=== PATIENT | female | born 1940 | race Caucasian/White ===

== ENCOUNTER 2024-05-12 07:27 | Inpatient (IN) | payer BC, OTHER ==
[2024-05-12 08:15] VITALS: BMI 21.2
[2024-05-12] MEDS ORDERED: ACETAMINOPHEN 325 MG TABLET (FP) ONE (10:30)
[2024-05-12] MEDS: ACETAMINOPHEN 500 MG TABLET (FP) PO ONE (10:39)
[2024-05-12 11:40] LABS: BASO % 0.4 % (0-2.0); HEMATOCRIT 36.9 % (32.4-45.2); HEMOGLOBIN 12.1 GM/dL (10.7-15.3); LYMPH % 7.4 % (8-40); MCH 31.4 pg (25.7-33.7); MCHC 32.7 g/dl (32.0-36.0); MONO % 6.5 % (3.8-10.2); NEUT % 85.7 % (42.8-82.8); PLATELET COUNT 234 10^3/uL (134-434); RBC 3.85 M/mm3 (3.60-5.2); RDW 13.9 % (11.6-15.6); WHITE BLOOD COUNT 13.1 K/mm3 (4.0-10.0)
[2024-05-12 11:55] LABS: POTASSIUM 4.2 mmol/L (3.5-5.1)
[2024-05-12 11:57] LABS: ALBUMIN 3.8 g/dl (3.4-5.0); BLOOD UREA NITROGEN 24.2 mg/dL (7-18); CALCIUM 9.6 mg/dL (8.5-10.1)
[2024-05-12 12:01] LABS: CREATININE 0.7 mg/dL (0.55-1.3)
[2024-05-12 12:02] LABS: BILIRUBIN,TOTAL 0.8 mg/dL (0.2-1); TOT PROT 6.5 g/dl (6.4-8.2)
[2024-05-12 13:16] VITALS: RESP 18
[2024-05-12] MEDS: ACETAMINOPHEN 1000 MG/100 ML BAG IVPB PRN (14:56)
[2024-05-12] MEDS ORDERED: ACETAMINOPHEN 1000 MG/100 ML BAG IVPB PRN (15:26)
[2024-05-12] MEDS ORDERED: POLYETHYLENE GLYCOL (HEALTHYLAX) 3350 17 GM PACKET PO PRN (15:28)
[2024-05-12] MEDS ORDERED: ACETAMINOPHEN 1000 MG/100 ML BAG IVPB SCH ×2 (15:30→18:30)
[2024-05-12] MEDS: LITHIUM CARBONATE 450 MG TABLET.ER PO SCH (15:45)
[2024-05-12] MEDS: KETOROLAC TROMETHAMINE 15 MG/ML VIAL IVPUSH PRN (17:26)
[2024-05-12] MEDS: ACETAMINOPHEN 1000 MG/100 ML BAG IVPB SCH (18:37)
[2024-05-12] MEDS ORDERED: clonazePAM 0.5 MG TABLET PO PRN (22:00)
[2024-05-13] MEDS: LEVOTHYROXINE NA 25 MCG TABLET (FP) PO SCH (06:24)
[2024-05-13 09:00] LABS: HEMATOCRIT 35.5 % (32.4-45.2); HEMOGLOBIN 11.6 GM/dL (10.7-15.3); MCH 31.6 pg (25.7-33.7); MCHC 32.7 g/dl (32.0-36.0); MEAN CELL VOLUME 96.8 fl (80-96); MEAN PLT VOLUME 7.8 fl (7.5-11.1); PLATELET COUNT 218 10^3/uL (134-434); RBC 3.67 M/mm3 (3.60-5.2); RDW 14.1 % (11.6-15.6)
[2024-05-13] MEDS: ENALAPRIL MALEATE 10 MG TABLET PO SCH (09:22)
[2024-05-13] MEDS: TOPIRAMATE 25 MG TABLET PO SCH (09:22)
[2024-05-13] MEDS: LAMOTRIGINE 100 MG, LAMOTRIGINE 50 MG PO SCH (09:22)
[2024-05-13] MEDS: ENOXAPARIN NA (PORCINE) 40 MG/0.4 ML DISP.SYRIN SQ SCH (09:22)
[2024-05-13 09:31] LABS: POTASSIUM 4.1 mmol/L (3.5-5.1)
[2024-05-13 09:52] LABS: ALBUMIN 3.5 g/dl (3.4-5.0); BLOOD UREA NITROGEN 27.9 mg/dL (7-18); CALCIUM 9.3 mg/dL (8.5-10.1)
[2024-05-13 09:55] LABS: CREATININE 0.9 mg/dL (0.55-1.3)
[2024-05-13] MEDS ORDERED: PATIENT'S OWN MEDICATION (NON-FORMULARY) (Lamotrigine [Lamictal] 150 MG Tablet) PO SCH (10:00)
[2024-05-13 14:13] LABS: URINE APPEARANCE CLEAR; URINE BILIRUBIN NEGATIVE (NEGATIVE); URINE COLOR YELLOW; URINE GLUCOSE (UA) NEGATIVE (NEGATIVE); URINE KETONE NEGATIVE (NEGATIVE); URINE LEUK ESTERASE NEGATIVE (NEGATIVE); URINE NITRITE NEGATIVE (NEGATIVE); URINE PROTEIN NEGATIVE (NEGATIVE)
[2024-05-14 08:38] LABS: BASO % 0.6 % (0-2.0); EOS % 0.2 % (0-4.5); HEMATOCRIT 35.9 % (32.4-45.2); LYMPH % 12.8 % (8-40); MCH 32.1 pg (25.7-33.7); MCHC 33.4 g/dl (32.0-36.0); MEAN CELL VOLUME 96.2 fl (80-96); MEAN PLT VOLUME 8.3 fl (7.5-11.1); MONO % 10.1 % (3.8-10.2); NEUT % 76.3 % (42.8-82.8); PLATELET COUNT 217 10^3/uL (134-434); RBC 3.73 M/mm3 (3.60-5.2); RDW 14.1 % (11.6-15.6)
[2024-05-14 08:54] LABS: POTASSIUM 4.2 mmol/L (3.5-5.1)
[2024-05-14 08:57] LABS: BLOOD UREA NITROGEN 18.7 mg/dL (7-18); CALCIUM 9.2 mg/dL (8.5-10.1)
[2024-05-14 09:00] LABS: CREATININE 0.7 mg/dL (0.55-1.3)
[2024-05-15] MEDS: KETOROLAC TROMETHAMINE 10 MG TABLET PO ONE (04:59)
[2024-05-15] MEDS: ACETAMINOPHEN 325 MG TABLET (FP) PO SCH (13:12)
[2024-05-15] MEDS: oxyCODONE HCL 5 MG TABLET PO PRN (13:14)
[2024-05-15] MEDS: NAPROXEN 250 MG TABLET PO SCH (14:52)
[2024-05-15 15:26] VITALS: BP 111/55; PULSE 81; TEMP 98.4
== END 2024-05-15 17:20 | DRG 536 ==
LOC: JER 07:27 → UNDOADMOB 12:01 → INTOOBSV 12:01 → JERBED 12:01 → J6S 14:12 → OBSVTOIN 15:28
PROVIDERS: ADMIT Internal Medicine; ATTEND Internal Medicine
DX: S32.511A Fracture of superior rim of right pubis, initial encounter for closed fracture (principal); R10.2 Pelvic and perineal pain; F31.9 Bipolar disorder, unspecified; I10 Essential (primary) hypertension; E03.9 Hypothyroidism, unspecified; M19.90 Unspecified osteoarthritis, unspecified site; W19.XXXA Unspecified fall, initial encounter; Y93.9 Activity, unspecified; Y92.89 Other specified places as the place of occurrence of the external cause; Y99.9 Unspecified external cause status
CPT/HCPCS: 36415; 72170-TC-FY; 73502-TC-RT-FY; 73552-TC-RT-FY; 80048; 80053; 81003; 85025; 85027; 87086; 87186; 87635; 97116-GP; 97162-GP; 99285-25; G0378; J0131

== ENCOUNTER 2024-08-05 10:37 | Emergency (ER) | payer BC, OTHER ==
[2024-08-05 11:15] VITALS: BMI 20.2
[2024-08-05] MEDS ORDERED: ACETAMINOPHEN INJECTION 100 ML ONE (12:14)
[2024-08-05] MEDS: ACETAMINOPHEN 1000 MG/100 ML BAG IVPB ONE (12:24)
[2024-08-05 12:35] LABS: HEMATOCRIT 34.8 % (32.4-45.2); HEMOGLOBIN 11.3 GM/dL (10.7-15.3); MCH 30.7 pg (25.7-33.7); MCHC 32.5 g/dl (32.0-36.0); MEAN CELL VOLUME 94.3 fl (80-96); MEAN PLT VOLUME 7.9 fl (7.5-11.1); PLATELET COUNT 260 10^3/uL (134-434); RDW 13.6 % (11.6-15.6); WHITE BLOOD COUNT 14.7 K/mm3 (4.0-10.0)
[2024-08-05] MEDS ORDERED: MORPHINE SULFATE 2 MG/ML SYRINGE ONE ×3 (13:05→23:08)
[2024-08-05] MEDS: morphine SULFATE 4 MG/ML VIAL IVPUSH ONE (13:10)
[2024-08-05 13:11] LABS: POTASSIUM 4.3 mmol/L (3.5-5.1)
[2024-08-05 13:13] LABS: CALCIUM 9.4 mg/dL (8.5-10.1)
[2024-08-05 13:14] LABS: ALBUMIN 3.4 g/dl (3.4-5.0); BLOOD UREA NITROGEN 23.8 mg/dL (7-18)
[2024-08-05 13:17] LABS: CREATININE 0.8 mg/dL (0.55-1.3)
[2024-08-05 13:18] LABS: TOT PROT 6.4 g/dl (6.4-8.2)
[2024-08-05 13:22] LABS: BILIRUBIN,TOTAL 0.4 mg/dL (0.2-1)
[2024-08-05] MEDS ORDERED: morphine SULFATE 4 MG/ML VIAL ONE (15:13)
[2024-08-05] MEDS: morphine CARPU-JECT 4 MG/1 ML DISP.SYRIN IVPUSH ONE (15:18)
[2024-08-05] MEDS ORDERED: DIPHTH,PERTUSS(ACELL),TET 0.5 ML DISP.SYRIN IM ONE (18:59)
[2024-08-05] MEDS: DIPHTH,PERTUSS(ACELL),TET 0.5 ML DISP.SYRIN IM ONE (19:01)
[2024-08-05] MEDS: morphine CARPU-JECT 2 MG/1 ML DISP.SYRIN IVPUSH ONE ×2 (20:22→23:13)
[2024-08-05 23:00] VITALS: BP 117/69; PULSE 82; RESP 18; TEMP 97.9
[2024-08-06] MEDS ORDERED: ACETAMINOPHEN INJECTION 100 ML ONE (01:08)
[2024-08-06] MEDS: ACETAMINOPHEN 1000 MG/100 ML BAG IVPB ONE (01:11)
[2024-08-06] MEDS: morphine CARPU-JECT 2 MG/1 ML DISP.SYRIN IVPUSH ONE (01:29)
== END 2024-08-06 02:30 | disposition short-term general hospital (02) ==
LOC: JER 10:37
PROC: 3E033NZ Introduction of Analgesics, Hypnotics, Sedatives into Peripheral Vein, Percutaneous Approach (ICD-10-PCS; principal; 2024-08-05)
PROC: 3E033NZ Introduction of Analgesics, Hypnotics, Sedatives into Peripheral Vein, Percutaneous Approach (ICD-10-PCS; 2024-08-05)
PROC: 3E033NZ Introduction of Analgesics, Hypnotics, Sedatives into Peripheral Vein, Percutaneous Approach (ICD-10-PCS; 2024-08-05)
PROC: 3E033NZ Introduction of Analgesics, Hypnotics, Sedatives into Peripheral Vein, Percutaneous Approach (ICD-10-PCS; 2024-08-05)
PROC: 3E0234Z Introduction of Serum, Toxoid and Vaccine into Muscle, Percutaneous Approach (ICD-10-PCS; 2024-08-05)
PROC: 3E033NZ Introduction of Analgesics, Hypnotics, Sedatives into Peripheral Vein, Percutaneous Approach (ICD-10-PCS; 2024-08-06)
DX: M97.02XA Periprosthetic fracture around internal prosthetic left hip joint, initial encounter (principal); W01.0XXA Fall on same level from slipping, tripping and stumbling without subsequent striking against object, initial encounter; Z23 Encounter for immunization
CPT/HCPCS: 36415; 70450-TC; 71046-TC-FY; 72170-TC-FY; 73502-TC-LT-FY; 80053; 84484; 85027; 90471; 90715; 96374; 96375; 96376; 99285-25; J0131